=== PATIENT | male | born 1990 | race Caucasian/White ===

== ENCOUNTER 2020-02-01 05:15 | Inpatient (IN) | payer OTHER, SELFPAY ==
[~2020-02-01] VITALS: Ht 167.6 cm; Wt 119.7 kg
[2020-02-01 05:28] VITALS: BP 147/84
--- NOTE | 2020-02-01 05:37 | NUR ---
PT TAKEN TO BED 10
--- NOTE | 2020-02-01 05:42 | NUR ---
Dr. Friedman examining patient.
--- NOTE | 2020-02-01 05:45 | NUR ---
29M PRESENTS TO ED WITH C/O SOB X 1 WEEK. PT ALSO PRESENTS WITH DRY PRODUCTIVE COUGH, HEADACHE, MYALGIA, +N/V/D, +APPETITE CHANGES, FEVER. PT STATES THAT THEY WORK FOR " [employer]" WH[employer] IS [employer] IN [place]. STATES THAT THEY HAVE BEEN EXPOSED TO TWO COVID + COLLEAGUES. STATES THAT EVERYTHING STARTED ABOUT 1 WEEK. ERMD MADE AWARE OF THE SYMPTOMS. PT 02SAT 92% UPON ADMISSION AND PLACED ON 3L N/C WITH 02SAT INCREASING TO 97%. UPON ASSESSMENT, PT A/O X 4, GCS 15. PT APPEARS LETHARGIC. PERRLA. WHEEZES ON BILATERAL LOWER LOBES BOTH INSPIRATORY AND EXPIRATORY. RR TACHYPNEIC AT 37. ABDOMEN SOFT AND NONTENDER. BOWEL SOUNDS NORMOACTIVE. C/O OF LOWER BACK PAIN. PT IS AMBULATORY. SKIN INTACT. PT PLACED FOR COMFORT WITH HOB ELEVATED. SAFETY PRECAUTIONS IN PLACE WITH RAILS UP X2, BED LOWEST AND LOCKED. PT PLACED ON CARDIAC MONITORING, PULSE OXIMETRY AND BP MONITORING. PMHX: DENIES RX: DENIES NKA PLACED IN ISO ROOM 10 FOR POSITIVE COVID SCREENING. PT WEARING MASK.
--- NOTE | 2020-02-01 06:00 | NUR ---
COVID SWAB, FLU, RSV SWAB COLLECTED AND SENT TO LAB.
--- NOTE | 2020-02-01 06:00 | NUR ---
LABS DRAWN AND BLOOD CULTURES DRAWN AND SENT TO LAB.
--- NOTE | 2020-02-01 06:02 | NUR ---
X-Ray at bedside.
[2020-02-01] MEDS ORDERED: ONDANSETRON 4 MG/2 ML VIAL IVP ONE (06:05)
[2020-02-01] MEDS ORDERED: KETOROLAC 30 MG/ML VIAL IVP ONE (06:05)
[2020-02-01 06:10] LABS: APPEARANCE,URINE CLEAR (CLEAR); BILIRUBIN,URINE NEGATIVE (NEGATIVE); BLOOD, URINE TRACE-I (NEGATIVE); COLOR,URINE YELLOW (YELLOW); LEUKOCYTE ESTERASE ,URINE NEGATIVE (NEGATIVE); NITRITE, URINE NEGATIVE (NEGATIVE); UGLUCOSE NEGATIVE (NEGATIVE)
--- NOTE | 2020-02-01 06:15 | NUR ---
PT MEDICATED WITH TORADOL AND ZOFRAN IVP. TOLERATED WELL. NADR
--- NOTE | 2020-02-01 06:16 | NUR ---
NO PRESCRIPTION MEDICATION FOR MED RECON, PER PT STATEMENT
[2020-02-01] MEDS ORDERED: AZITHROMYCIN 500 MG in DEXTROSE 5% 250 ML IV ONE (06:20)
[2020-02-01 06:23] LABS: BASOPHILS # (AUTO) 0.1 K/uL (0.00-0.22); HEMATOCRIT 45.2 % (36-52); HEMOGLOBIN 15.4 g/dL (12.0-18.0); LYMPHOCYTES # (AUTO) 1.1 K/uL (2.0-11.5); LYMPHOCYTES % (AUTO) 17.7 % (20.5-51.1); MEAN CORPUSCULAR HEMOGLOBIN 31 pg (27-31); MEAN CORPUSCULAR HGB CONC 34 g/dL (33-37); MEAN CORPUSCULAR VOLUME 90.7 fL (80-94); MONOCYTES # (AUTO) 0.4 K/uL (0.8-1.0); MONOCYTES % (AUTO) 7.2 % (1.7-9.3); NEUTROPHILS # (AUTO) 4.4 K/uL (1.8-7.7); NEUTROPHILS % (AUTO) 73.1 % (42.2-75.2); PLATELET COUNT (AUTO) 146 K/uL (140-450); RED BLOOD CELL COUNT(AUTO) 4.98 MIL/uL (4.20-6.10)
[2020-02-01] MEDS ORDERED: AZITHROMYCIN 500 MG INJ VIAL IV ONE (06:24)
--- NOTE | 2020-02-01 06:39 | NUR ---
PT STARTED ON ZITHROMAX 500MG VIA IVPB. TOLERATED WELL. NADR
[2020-02-01 06:43] LABS: RBC,URINE 0-5 /HPF (0-5); RSV NEGATIVE (NEGATIVE); WBC,URINE 0-5 /HPF (0-5)
[2020-02-01 06:50] LABS: PROTHROMBIN TIME 10.7 secs (10.8-13.4)
[2020-02-01 06:52] LABS: ALBUMIN 3.1 g/dL (3.4-5.0); ANION GAP 15.3 (8-16); CARBON DIOXIDE 23.6 mmol/L (21-32); POTASSIUM 3.9 mmol/L (3.5-5.1); TOTAL BILIRUBIN 0.3 mg/dL (0.0-1.0)
--- NOTE | 2020-02-01 07:05 | NUR ---
Patient will be admitted to care of DR LOPEZ. Admited to TELE. Will go to room 116. Belongings list completed. Report to LISA HARP .
--- NOTE | 2020-02-01 07:05 | NUR ---
RECEIVED REPORT FROM ER NURSE, PT IS STABLE, AAOX4, PT HAS R AC 18G, SKIN INTACT, PT ON 3L NASAL CANNULA OXYGEN, INTRODUCE PT TO ROOM, OBTAIN MRSA SWAB, CALL LIGHT WITHIN REACH, BED IN LOW POSITION, ALL NEEDS MET AT THIS TIME, WILL CONTINUE TO MONITOR.
[2020-02-01 08:00] VITALS: BP 100/49
[2020-02-01] MEDS ORDERED: DOCUSATE SODIUM 100 MG GELCAP PO PRN (08:20)
[2020-02-01] MEDS ORDERED: LORazepam 2 MG/ML VIAL IM/IVP PRN (08:20)
[2020-02-01] MEDS ORDERED: MORPHINE SULFATE 2 MG/ML SYR IVP PRN (08:20)
[2020-02-01] MEDS ORDERED: ACETAMINOPHEN 325 MG TAB PO PRN (08:20)
[2020-02-01] MEDS ORDERED: ONDANSETRON 4 MG/2 ML VIAL IM/IVP PRN (08:20)
[2020-02-01] MEDS ORDERED: HYDROcodone/APAP 5/325 MG 1 TAB TAB PO PRN (08:20)
[2020-02-01] MEDS ORDERED: ZOLPIDEM 5 MG TAB PO PRN (08:20)
[2020-02-01] MEDS ORDERED: ALBUTEROL HFA MDI 90 MCG/ACTUATION 8 GM INH PRN (08:25)
[2020-02-01 08:28] LABS: C-REACTIVE PROTEIN QUANT 9.7 mg/dL (0.0-0.9)
[2020-02-01 08:34] LABS: LACTATE DEHYDROGENASE 504 U/L (85-227)
--- NOTE | 2020-02-01 08:59 | NUR ---
PATIENT HAS BEEN SCREENED AND CATEGORIZED MODERATE NUTRITION RISK. PATIENT WILL BE SEEN WITHIN 3-5 DAYS OF ADMISSION. 02/03/20 02/05/[address]
[2020-02-01] MEDS: ENOXAPARIN 60 MG/0.6 ML SYR SUBQ SCH ×2 (09:42→21:04)
[2020-02-01] MEDS: ASCORBIC ACID 500 MG TAB PO SCH (09:43)
[2020-02-01] MEDS: ZINC SULF 220 MG CAP PO SCH (09:43)
[2020-02-01] MEDS: NACL 0.9% 1,000 ML IV SCH (09:47)
[2020-02-01 09:52] LABS: CHOL/HDL RATIO 3.3 (1-4.5)
[2020-02-01 10:00] LABS: MAGNESIUM 1.9 mg/dL (1.8-2.4); PHOSPHORUS 2.8 mg/dL (2.5-4.9); THYROID STIMULATING HORMONE 2.48 uIU/mL (0.34-3.74)
--- NOTE | 2020-02-01 10:00 | NUR ---
ADMINISTERED SCHEDULED MEDICATION, MEDICATION EDUCATION GIVEN, PT VERBALIZED UNDERSTANDING, PT IS STABLE, CALL LIGHT WITHIN REACH.
--- NOTE | 2020-02-01 11:06 | NUR ---
ROAD SUPERVISOR NOTE: Patient's Orientation Person Situation Place Time Information Provided By CELIA JOSE Comments SW WAS UNABLE TO MEET PATIENT AT BEDSIDE DUE TO MEDICAL CONDITION. Barrel Marker, Realtionship and Phone Number CELIA PRETTY [phone] Healthcare Power of Warehouse Production Worker No Does Patient Have a POLST No Identifying Problems No Social Work Triggers Is A Social Work Consult Needed No Mandate Report Filed No Explanation Of Identifying Problems PATIENT IS A 29-YEAR-OLD MALE ADMITTED FOR PNEUMONIA AND COVID R/O. Admitted From Home Pre-Admission Level Of Functioning Status Independent/Ambulatory Prior Resources/Services Used In Last 12 Months No Prior Resources Used Prior DME No Prior DME Used Living Situation Lives With Family House Patient Had Caregiver No Home Support No Caregiver Issues Financial Issues No Known Financial Issue Referral To The Financial Counselor Needed No Factors/Needs No D/C Needs Identified Pt/Rep Participated In Discharge Plan Yes Patient/Family Agress With Discharge Plan Yes Discharge Plan Comments TENTATIVE DISCHARGE PLAN IS FOR PATIENT TO RETURN HOME. DC Plan Status Initiated
[2020-02-01 12:00] VITALS: BP 118/60
--- NOTE | 2020-02-01 13:00 | NUR ---
PT RESTING IN BED, NO SIGNS OF DISTRESS NOTED, CALL LIGHT WITHIN REACH.
--- NOTE | 2020-02-01 14:37 | NUR ---
DC PLANNIN YRS OLD MALE PATIENT WAS ADMITTED FROM HOME WITH A DX OF PNEUMONIA R/O COVID . PATIENT HAS NO MEDICAL HX. CXR SHOWED LOW LUNG VOLUMES BILATERAL PATCHY HAZINESS SUSPICIOUS FOR INFILTRATE. INFLUENZA A&B NEGATIVE. COVID TEST AND BLOOD CULTURE PENDING. STARTED ON IVF, IV ABX ROCEPHIN , LOVENOX SUBQ .CONSULTED WITH DR ELLY WINTERS DC PLAN TO GO HOME WHEN STABLE CM TO FOLLOW. Addendum: 02/04/20 at 1525 by Michela Vitale CM LATE ENTRY: RECEIVED AN ORDER FOR HOME O2. CONTACTED [facility] AT [phone], ABLE TO SPEAK TO [facility]. SHE STATED THEIR AUTH DEPARTMENT IS CLOSED TODAY AND TO FOLLOW UP ON WEDNESDAY. CONTACTED [facility] (MAIN OFFICE) AT [phone], ABLE TO SPEAK TO QUENTIN. SHE CONFIRMED THAT THEY ARE CONTRACTED WITH [employer] AND TO GO AHEAD AND FAX REFERRAL TO [phone]. ORDER SENT TO THE PROVIDED FAX NUMBER. CONTACTED [facility] (LOCAL) [phone], NO ANSWER. LEFT MESSAGE. WILL FOLLOW UP. Addendum: 02/05/20 at 1105 by Thais Monge CM FOLLOWED UP WITH JENI AT [facility] [phone]. SHE STATED THAT SHE IS GOING TO HAVE HER BEAUTY CULTURE TEACHER LOOK INTO THIS PATIENTS ORDER BECAUSE SHE IS READING A NOTE THAT STATES THE PATIENTS INSURANCE DOES NOT COVER THE COST FOR THE HOME 02. HER BEAUTY CULTURE TEACHER YOEL WILL BE REACHING OUT TO ME. Addendum: 02/05/20 at 1314 by Michela Vitale RECEIVED A MESSAGE FROM REBECCA OF [facility] REQUESTING FOR LITER FLOW. CONTACTED [facility] AT [phone], ABLE TO SPEAK TO YOEL. HE STATED REBECCA IS ON THE PHONE HOWEVER HE CAN HELP. INFORMED HIM THAT PORTABLE OXYGEN WAS DELIVERED AT THE BEDSIDE LAST NIGHT. HE STATED HE IS NOT AWARE OF IT. INFORMED HIM WELL THAT I SPOKE TO QUENTIN YESTERDAY. CONTACTED PATIENT'S NURSE JOSE ENRIQUE, IF WHEN WAS THE O2 DELIVERED. SHE STATED LAST NIGHT BUT DID NOT GET ANY ENDORSEMENT WHICH COMPANY DELIVERED IT. CONTACTED THE PATIENT'S PARTNER KURT JOSE AT [phone], SHE CONFIRMED THAT THE PATIENT IS HOME ALREADY AND IS TAKING A SHOWER AT THIS TIME. I ASKED HER A FAVOR TO CHECK THE BALL ENDER THE O2 TANK IF WHAT COMPANY IS ON THERE. SHE STATED [employer]. CONTACTED [employer], ABLE TO SPEAK TO YOEL. INFORMED HIM THAT THE O2 IS FROM [employer]. HE STATED PROBABLY IT WAS DELIVERED AFTER HOURS. Addendum: 02/06/20 at 1113 by Michela Vitale RECEIVED A CALL FROM JOSE ENRIQUE AT DR. LOPEZ'S OFFICE, REGARDING PATIENT'S HOME O2 THAT IT WAS ALL EMPTY AND THEY NEEDED REPLACEMENT. CONTACTED [employer] AT [phone], NO ANSWER. LEFT MESSAGE. CONTACTED PATIENT'S PARTNER KUTR JOSE AT [phone], SHE STATED HE IS ON THE PHONE WITH [employer] AT THIS TIME.
--- NOTE | 2020-02-01 15:36 | NUR ---
PT RESTING IN BED, NO SIGNS OF DISTRESS NOTED, PT STATES HE IS OKAY, ALL NEEDS MET AT THIS TIME, WILL CONTINUE TO MONITOR, CALL LIGHT WITHIN REACH.
[2020-02-01 16:00] VITALS: BP 106/55
--- NOTE | 2020-02-01 17:45 | NUR ---
PT RESTING IN BED WATCHING TV, NO SIGNS OF DISTRESS NOTED, CALL LIGHT WITHIN REACH.
--- NOTE | 2020-02-01 19:20 | NUR ---
ENDORSE PT TO NIGHT NURSE FOR CONTINUITY OF CARE, PT IS STABLE
--- NOTE | 2020-02-01 19:25 | NUR ---
RECEIVED ENDORSEMENT FROM AM SHIFT RN. PATIENT IS LYING IN BED. NO SOB. ON 3 LITERS NASAL CANNULA. DENIES PAIN. NOTED RAC 18 G WITH IVF INFUSING. TELE MONITOR ATTACHED. ASSESSMENT DONE. DROPLET ISOLATION OBSERVED. LOW BED IN PLACE. PLAN OF CARE WAS DISCUSSED. CALL LIGHT WITHIN REACH. WILL CONTINUE TO MONITOR.
[2020-02-01 20:00] VITALS: BP 117/67
--- NOTE | 2020-02-01 21:04 | NUR ---
DUE MEDS GIVEN ORDERED. TOLERATED WELL. MED EDUCATION PROVIDED.
[2020-02-01 22:45] LABS: BARBITURATE, URINE NEGATIVE ng/ml (NEG <=200); BENZODIAZEPINE, URINE NEGATIVE ng/mL (NEG <=200); CANNABINOID, URINE NEGATIVE ng/mL (NEG <=50); COCAINE, URINE NEGATIVE ng/mL (NEG <=300); OPIATE, URINE NEGATIVE ng/mL (NEG <=2000); PHENCYCLIDINE SCREEN,URINE NEGATIVE ng/mL (NEG <=25)
[2020-02-02] VITALS: BP 108/57
--- NOTE | 2020-02-02 00:03 | NUR ---
PATIENT IS FEBRILE 100.6. TYLENOL PO GIVEN ORDERED
[2020-02-02] MEDS ORDERED: TEMAZEPAM 15 MG CAP PO ONE (00:10)
[2020-02-02] MEDS: guaiFENesin DM 200/20 MG-10 ML 10 ML UDC PO PRN ×3 (00:36→22:54)
--- NOTE | 2020-02-02 00:36 | NUR ---
PATIENT NOTED WITH NON PRODUCTIVE COUGH. ROBITUSSIN PO GIVEN REQUESTED BY PATIENT AND ORDERED.
--- NOTE | 2020-02-02 03:00 | NUR ---
PATIENT IS ASLEEP. EASILY AROUSABLE TO VERBAL. NO SOB. CALL LIGHT WITHIN REACH. WILL CONTINUE TO MONITOR.
[2020-02-02 04:00] VITALS: BP 113/70
[2020-02-02] MEDS: NACL 0.9% 1,000 ML IV SCH (05:12)
[2020-02-02 06:46] LABS: BASOPHILS % (AUTO) 0.3 % (0.0-2.0); HEMATOCRIT 42.5 % (36-52); HEMOGLOBIN 14.3 g/dL (12.0-18.0); LYMPHOCYTES # (AUTO) 1.7 K/uL (2.0-11.5); LYMPHOCYTES % (AUTO) 27.4 % (20.5-51.1); MEAN CORPUSCULAR HEMOGLOBIN 31 pg (27-31); MEAN CORPUSCULAR HGB CONC 34 g/dL (33-37); MEAN CORPUSCULAR VOLUME 91.5 fL (80-94); MONOCYTES # (AUTO) 0.4 K/uL (0.8-1.0); MONOCYTES % (AUTO) 5.9 % (1.7-9.3); NEUTROPHILS # (AUTO) 4.2 K/uL (1.8-7.7); NEUTROPHILS % (AUTO) 66.4 % (42.2-75.2); PLATELET COUNT (AUTO) 178 K/uL (140-450); RED BLOOD CELL COUNT(AUTO) 4.65 MIL/uL (4.20-6.10); RED CELL DISTRIBUTION WIDTH 13.1 % (11.6-13.7); WHITE BLOOD COUNT (AUTO) 6.3 K/uL (4.8-10.8)
[2020-02-02 06:59] LABS: ALBUMIN 2.6 g/dL (3.4-5.0); ASPARTATE AMINOTRANSFERASE 108 U/L (15-37); CARBON DIOXIDE 28.2 mmol/L (21-32); CHLORIDE 103 mmol/L (98-107); CREATININE 1.1 mg/dL (0.6-1.3); GFR ARICAN-AMERICAN 103 mL/min (>90); GLUCOSE 106 mg/dL (74-106); LACTATE DEHYDROGENASE 506 U/L (85-227); POTASSIUM 4.2 mmol/L (3.5-5.1); SODIUM SERUM 139 mmol/L (136-145); TOTAL BILIRUBIN 0.3 mg/dL (0.0-1.0); UREA NITROGEN, BLOOD 7 mg/dL (7-18)
--- NOTE | 2020-02-02 07:02 | NUR ---
PATIENT IS NOT IN ANY ACUTE DISTRESS. ENDORSED TO AM SHIFT RN FOR CONTINUITY OF CARE.
--- NOTE | 2020-02-02 07:20 | NUR ---
SHIFT REPORT RECEIVED FROM UNIFORM CAP OPERATOR NURSE. PT IS AWAKE AND RESPONSIVE AND SITTING IN BED. PT'S VITAL SIGNS NORMAL. PT IS ON O2 3L NC AT 94%. NO COMPLAINS OF PAIN OR DISTRESS REPORTED. SAFETY MEASURES IN PLACE. IV INTACT. WILL CONTINUE TO MONITOR. CALL LIGHT IN REACH.
[2020-02-02 08:00] VITALS: BP 115/68
[2020-02-02] MEDS ORDERED: AZITHROMYCIN 250 MG TAB PO SCH (09:00)
[2020-02-02] MEDS: ZINC SULF 220 MG CAP PO SCH (09:25)
[2020-02-02] MEDS: DEXAMETHASONE 4 MG TAB PO SCH (09:27)
[2020-02-02] MEDS: ASCORBIC ACID 500 MG TAB PO SCH (09:27)
--- NOTE | 2020-02-02 09:30 | NUR ---
PT IS SITTING IN BED. PT HAD BREAKFAST. PT AMBULATED TO RESTROOM. NO DISTRESS OR S.O.B REPORTED. WILL CONTINUE TO MONITOR. CALL LIGHT IN REACH.
[2020-02-02] MEDS: ENOXAPARIN 60 MG/0.6 ML SYR SUBQ SCH ×2 (09:47→22:37)
[2020-02-02 12:00] VITALS: BP 100/42
--- NOTE | 2020-02-02 12:30 | NUR ---
PT IS SITTING IN CHAIR. PT HAD BREAKFAST. PT AMBULATED TO RESTROOM. NO DISTRESS OR S.O.B REPORTED. VITAL SIGNS NORMAL. INCENTIVE SPIROMETRY GIVEN WITH EDUCATION. WILL CONTINUE TO MONITOR. CALL LIGHT IN REACH.
--- NOTE | 2020-02-02 14:51 | NUR ---
PT IS RESTING IN BED AT TIS TIME. PT IS ALERT AWAKE AND RESPONSIVE. PT IS STABLE AT HIS TIME. NO DISTRESS NOTED. WILL CONTINUE TO MONITOR. CALL LIGHT IN REACH.
[2020-02-02 16:00] VITALS: BP 119/68
--- NOTE | 2020-02-02 16:00 | NUR ---
PT IS SITTING IN BED WATCHING TELEVISION. PT WAS GIVEN COUGH MEDICATION FOR C/O OF COUGH. NO PAIN REPORTED. PT IS AMBULATORY. SAFETY MEASURES IN PLACE. CALL LIGHT IN REACH.
--- NOTE | 2020-02-02 19:20 | NUR ---
SHIFT REPORT GIVEN TO SCALE TECHNICIAN NURSE. PT IS IN STABLE CONDITION.
--- NOTE | 2020-02-02 19:21 | NUR ---
RECEIVED REPORT FROM DAY SHIFT NURSE, FOR CONTINUITY OF CARE. PT IS A&OX4. COVID +. RESPIRATIONS ARE EVEN AND UNLABORED, BREATHING TO 3L NC. SKIN COLOR APPROPRIATE FOR ETHNICITY. RAC 18G IV IS PATENT AND INTACT, AND RUNNING PER ORDERS. NO ACUTE DISTRESS NOTED. DROPLET PRECAUTIONS IN PLACE. SAFETY MEASURES IN PLACE; CALL LIGHT WITHIN REACH, BED IN LOW POSITION. WILL CONTINUE TO MONITOR.
[2020-02-02 20:00] VITALS: BP 134/59
[2020-02-02] MEDS: TEMAZEPAM 15 MG CAP PO SCH (22:36)
--- NOTE | 2020-02-02 22:57 | NUR ---
ORDERED MEDICATION GIVEN, WITH MEDICATION EDUCATION PROVIDED. PT REQUESTED MEDICATION TO HELP WITH HIS COUGH; PRN PO COUGH MEDICATION GIVEN. NO DISTRESS NOTED. SPO2: 93% ON 3L NC. TELE MONITOR ATTACHED. SAFETY MEASURES IN PLACE. WILL CONTINUE TO MONITOR.
[2020-02-03] VITALS: BP 126/56
--- NOTE | 2020-02-03 03:37 | NUR ---
PT FOUND SITTING UP AT SIDE OF BED HOLDING CHEST, AND COUGHING; COMPLAINS OF CONSTANT COUGHING AND SOB. NC 02 INCREASED, AND PT'S SYMPTOMS RESOLVE. WILL NOTIFY RT, AND CONTINUE TO MONITOR PT.
--- NOTE | 2020-02-03 03:46 | NUR ---
PT STATES THAT HE IS BREATHING EASIER; 02 SET BACK TO 3 LPM VIA NC. WILL CONTINUE TO MONITOR.
[2020-02-03 04:00] VITALS: BP 128/53
[2020-02-03] MEDS: NACL 0.9% 1,000 ML IV SCH (06:19)
[2020-02-03] MEDS: guaiFENesin DM 200/20 MG-10 ML 10 ML UDC PO PRN ×3 (06:19→18:56)
--- NOTE | 2020-02-03 06:20 | NUR ---
ADMINISTERED PRN PO COUGH MEDICATION, AT PT'S REQUEST. IVF BAG HUNG, AND RUNNING PER ORDERS. NO ACUTE DISTRESS NOTED.
--- NOTE | 2020-02-03 07:29 | NUR ---
ENDORSED TO DAYSHIFT NURSE, FOR CONTINUITY OF CARE. PT IS IN STABLE CONDITION.
--- NOTE | 2020-02-03 07:30 | NUR ---
RECEIVED PATIENT FROM NIGHT NURSE. PATIENT IS AWAKE AND ALERT ORIENTED X4. PATIENT IS UP AND AMBULATED WITH STEADY GAIT TO CHAIR. PATIENT DENIES OF SOB OR PAIN AT THIS TIME. RAC 18 NOTED. PLAN OF CARE DISCUSSED WITH PATIENT. PATIENT VERBALIZED UNDERSTANDING. CALL LIGHT WITHIN REACH. WILL CONTINUE WITH CARE.
[2020-02-03 08:00] VITALS: BP 108/62
[2020-02-03] MEDS: DEXAMETHASONE 4 MG TAB PO SCH (08:21)
[2020-02-03] MEDS: ASCORBIC ACID 500 MG TAB PO SCH (08:21)
[2020-02-03] MEDS: ZINC SULF 220 MG CAP PO SCH (08:21)
[2020-02-03 08:24] LABS: BASOPHILS % (AUTO) 0.5 % (0.0-2.0); HEMATOCRIT 42.2 % (36-52); HEMOGLOBIN 14.2 g/dL (12.0-18.0); LYMPHOCYTES # (AUTO) 1.3 K/uL (2.0-11.5); LYMPHOCYTES % (AUTO) 13.5 % (20.5-51.1); MEAN CORPUSCULAR HEMOGLOBIN 31 pg (27-31); MEAN CORPUSCULAR HGB CONC 34 g/dL (33-37); MEAN CORPUSCULAR VOLUME 91.4 fL (80-94); MONOCYTES # (AUTO) 0.7 K/uL (0.8-1.0); MONOCYTES % (AUTO) 7.7 % (1.7-9.3); NEUTROPHILS # (AUTO) 7.6 K/uL (1.8-7.7); NEUTROPHILS % (AUTO) 78.3 % (42.2-75.2); PLATELET COUNT (AUTO) 237 K/uL (140-450); RED BLOOD CELL COUNT(AUTO) 4.62 MIL/uL (4.20-6.10); RED CELL DISTRIBUTION WIDTH 13.3 % (11.6-13.7); WHITE BLOOD COUNT (AUTO) 9.7 K/uL (4.8-10.8)
[2020-02-03 08:33] LABS: ALBUMIN 2.6 g/dL (3.4-5.0); ANION GAP 13.4 (8-16); CARBON DIOXIDE 26.2 mmol/L (21-32); CREATININE 1.1 mg/dL (0.6-1.3); POTASSIUM 4.6 mmol/L (3.5-5.1); TOTAL BILIRUBIN 0.2 mg/dL (0.0-1.0)
[2020-02-03] MEDS: ENOXAPARIN 60 MG/0.6 ML SYR SUBQ SCH ×2 (08:47→23:06)
--- NOTE | 2020-02-03 08:47 | NUR ---
MORNING ROUTINE MEDICATIONS GIVEN ORDERED. PATIENT TOLERATED WELL. RIGHT AC 18 PATENT, IVF RUNNING NS 40ML/HR. PATIENT DENIES OF SOB OR DISTRESS. 98.0 85 18 108/62 99% ON 3L NC. PATIENT TEACHING ON I/S AND PROPHYLACTIC THERAPY GIVEN. PATIENT VERBALIZED UNDERSTANDING. CALL LIGHT WITHIN REACH. WILL CONTINUE TO MONITOR.
[2020-02-03 09:46] LABS: CKMB RELATIVE INDEX 0.2 (0.0-2.5); CREATINE KINASE MB 1.8 ng/mL (0-3.6)
[2020-02-03 12:00] VITALS: BP 108/60
--- NOTE | 2020-02-03 12:45 | NUR ---
98.5 87 16 108/60 92% ON RA. PATIENT COMPLAINS OF COUGHS AND WAS GIVEN ROBITUSSIN PRN ORDERED. DR FISHER IS ATTEMPTING TO WEAN PATIENT OF OFF OXYGEN AND MAINTAIN A GOOD O2SAT ABOVE 92% FOR DISCHARGE PLANNING. WILL CONTINUE TO MONITOR.
--- NOTE | 2020-02-03 13:46 | NUR ---
PATIENT HAS SOB UPON EXERTION ACCOMPANYING WITH COUGHS. ALSO WHEN USING I/S, PATIENT IS UNABLE TO TAKE BREATHES WITHOUT COUGHINGS. SPOKE TO DR FISHER, PATIENT IS PUT BACK ON 3L NC, D/C PLANNING POSSIBLE FOR TOMORROW WHEN O2SAT IS MORE STABLE. PATIENT VERBALIZED UNDERSTANDING.
[2020-02-03 16:00] VITALS: BP 109/54
--- NOTE | 2020-02-03 17:25 | NUR ---
PATIENT IS SITTING COMFORTABLY ON CHAIR BY BEDSIDE. RESP EVEN AND UNLABORED ON 3L NC. DENIES OF PAIN OR DISCOMFORT AT THIS TIME. CALL LIGHT WITHIN REACH. WILL CONTINUE TO MONITOR.
--- NOTE | 2020-02-03 19:01 | NUR ---
PATIENT C/O COUGHS AND ROBITUSSIN PRN GIVEN REQUESTED. ENCOURAGED FLUIDS AND CALL STAFF FOR ASSIST NEEDED. RESP EVEN AND UNLABORED ON 3LNC. WILL CONTINUE TO MONITOR.
--- NOTE | 2020-02-03 19:25 | NUR ---
ENDORSED PATIENT TO NIGHT NURSE. PATIENT IN STABLE CONDITION. ROBITUSSIN IS EFFECTIVE.
--- NOTE | 2020-02-03 19:47 | NUR ---
RECEIVED REPORT AT BEDSIDE FROM HECTOR HARP DAYSHIFT NURSE FOR CONTINUITY OF CARE, PT IN STABLE CONDITION.
[2020-02-03 20:00] VITALS: BP 119/64
--- NOTE | 2020-02-03 20:15 | NUR ---
PT SITTING UP IN BED AOX4 WITH NO C/O PAIN OR DISTRESS NOTED. V/S FOLLOWS; T 98.5 P 78 R 20 B/P 119/64 02 IS 95% ON 3 LITERS VIA N/C. ALL DROPLET PRECAUTIONS IN PLACE.
[2020-02-03] MEDS: TEMAZEPAM 15 MG CAP PO SCH (21:00)
--- NOTE | 2020-02-03 21:45 | NUR ---
PT SITTING UP IN CHAIR NO S/S OF PAIN OR DISTRESS NOTED. PT GIVEN ORDERED RESTORIL AND LOVENOX, EDUCATION REGARDING MEDICATIONS PURPOSES AND SIDE EFFECTS PROVIDED AT BEDSIDE, PT ACKNOWLEDGED UNDERSTANDING. ALL DROPLET AND UNIVERSAL FALLS PROTOCOL IN PLACE.
--- NOTE | 2020-02-03 22:45 | NUR ---
PT IN BED SLEEPING, 02 ON AT 3 LITERS VIA N/C 02 IS 93%.
[2020-02-04] VITALS: BP 97/50
--- NOTE | 2020-02-04 00:20 | NUR ---
PT ASLEEP IN BED NO S/S OF PAIN OR DISTRESS NOTED. V/S FOLLOWS: T 98.1 P 74 R 18 B/P 97/50 02 93% ON 2 LITERS VIA N/C. ALL DROPLET AND UNIVERSAL FALLS PROTOCOL IN PLACE.
[2020-02-04] MEDS: guaiFENesin DM 200/20 MG-10 ML 10 ML UDC PO PRN ×3 (01:42→22:20)
--- NOTE | 2020-02-04 02:00 | NUR ---
PT IN BED ASLEEP NO S/S OF PAIN OR DISTRESS NOTED. 02 AT 3 LITERS VIA N/C 02 IS 93%. ALL UNIVERSAL FALLS AND DROPLET PRECAUTIONS IN PLACE.
[2020-02-04 04:00] VITALS: BP 113/57
--- NOTE | 2020-02-04 04:00 | NUR ---
PT IN BED NO S/S OF PAIN OR DISTRESS NOTED V/S FOLLOWS: T 98.5 P 86 R 20 B/P 113/57 02 91% WITH 3 LITERS VIA N/C.
[2020-02-04] MEDS: NACL 0.9% 1,000 ML IV SCH (06:26)
[2020-02-04 06:43] LABS: BASOPHILS # (AUTO) 0.1 K/uL (0.00-0.22); BASOPHILS % (AUTO) 0.4 % (0.0-2.0); HEMATOCRIT 40.5 % (36-52); HEMOGLOBIN 13.6 g/dL (12.0-18.0); LYMPHOCYTES # (AUTO) 1.2 K/uL (2.0-11.5); MEAN CORPUSCULAR HEMOGLOBIN 31 pg (27-31); MEAN CORPUSCULAR HGB CONC 34 g/dL (33-37); MEAN CORPUSCULAR VOLUME 90.7 fL (80-94); MONOCYTES # (AUTO) 1.1 K/uL (0.8-1.0); MONOCYTES % (AUTO) 8.3 % (1.7-9.3); NEUTROPHILS # (AUTO) 10.4 K/uL (1.8-7.7); PLATELET COUNT (AUTO) 302 K/uL (140-450); RED BLOOD CELL COUNT(AUTO) 4.46 MIL/uL (4.20-6.10); RED CELL DISTRIBUTION WIDTH 13.4 % (11.6-13.7); WHITE BLOOD COUNT (AUTO) 12.7 K/uL (4.8-10.8)
[2020-02-04 07:11] LABS: ALBUMIN 2.5 g/dL (3.4-5.0); ANION GAP 14.8 (8-16); CARBON DIOXIDE 24.2 mmol/L (21-32); TOTAL BILIRUBIN 0.3 mg/dL (0.0-1.0)
--- NOTE | 2020-02-04 07:21 | NUR ---
SHIFT REPORT RECEIVED FROM SUBSURFACE AUGMENTEE OPERATOR NURSE. PT IS RESTING IN BED AT THIS TIME. NO COMPLAINS OF PAIN OR DISTRESS REPORTED. WILL CONTINUE TO MONITOR. CALL LIGHT IN REACH.
[2020-02-04 07:45] LABS: CKMB RELATIVE INDEX 0.3 (0.0-2.5); CREATINE KINASE MB 1.4 ng/mL (0-3.6)
[2020-02-04 08:00] VITALS: BP 102/52
[2020-02-04 08:01] LABS: LYMPHOCYTES % (AUTO) 9.7 % (20.5-51.1); NEUTROPHILS % (AUTO) 81.6 % (42.2-75.2)
--- NOTE | 2020-02-04 09:30 | NUR ---
PT IS SITTING BED AT THIS TIME RESPONSIVE. PT TOOK MORNING MEDS. PT ON 3L NC. O2 @ 99%. NO COMPLAINS OF PAIN. PT IS AMBULATORY. SAFETY MEASURES IN PLACE. WILL CONTINUE TO MONITOR. CALL LIGHT IN REACH.
[2020-02-04] MEDS: ZINC SULF 220 MG CAP PO SCH (09:36)
[2020-02-04] MEDS: DEXAMETHASONE 4 MG TAB PO SCH (09:37)
[2020-02-04] MEDS: ENOXAPARIN 60 MG/0.6 ML SYR SUBQ SCH ×2 (09:37→20:51)
[2020-02-04] MEDS: ASCORBIC ACID 500 MG TAB PO SCH (09:37)
--- NOTE | 2020-02-04 11:06 | NUR ---
PT IS LYING IN BED IN PRONE POSITION.E. PT ON 3L NC. O2 @ 99%. NO COMPLAINS OF PAIN. PT IS AMBULATORY. SAFETY MEASURES IN PLACE. WILL CONTINUE TO MONITOR. CALL LIGHT IN REACH.
[2020-02-04 12:00] VITALS: BP 117/67
--- NOTE | 2020-02-04 12:30 | NUR ---
PT IS HAVING LUNCH AT THIS TIME. PT IS ON 3L NC O2. SATS AT 93%. NO DISTRESS NOTED. WILL CONTINUE TO MONITOR. CALL LIGHT IN REACH.
--- NOTE | 2020-02-04 15:03 | NUR ---
OXYGEN ASSESSMENT DONE ON PATIENT. PT ON O2 3L NC SATS AT 94%. PT WITHOUT EXERTION AND WITHOUT OXYGEN O2 SATS AT 91%. PT WITH EXERTION AND WITHOUT OXYGEN O2 SATS AT 89%. PT SAID THAT WITH EXERTION AND WITHOUT OXYGEN PT IS FEELING HEAVY IN CHEST.
[2020-02-04 16:00] VITALS: BP 110/45
--- NOTE | 2020-02-04 19:24 | NUR ---
SHIFT REPORT GIVEN TO INDUSTRIAL RELATIONS COMMISSIONER NURSE. PT IN STABLE CONDITION. CALL LIGHT IN REACH
--- NOTE | 2020-02-04 19:26 | NUR ---
RECEIVED REPORT FROM DAY RN FOR CONTINUITY OF CARE, PT IN STABLE CONDITION.
[2020-02-04 20:00] VITALS: BP 105/52
[2020-02-04] MEDS: TEMAZEPAM 15 MG CAP PO SCH (20:49)
--- NOTE | 2020-02-04 21:07 | NUR ---
PT SITTING IN BED. ADMINISTERED MEDICATIONS PER MD. MEDICATION EDUCATION GIVEN. PT VERBALIZED UNDERSTANDING. AOX4, ON 3L N/C. IV SITE ASYMPTOMATIC ON RIGHT AC 18G, IVF INFUSING NS AT 40ML/HR. SKIN WARM, DRY AND INTACT. NO C/O OF PAIN, NO RESPIRATORY DISTRESS. BED ON LOW POSITION, SIDE RAILS UP X2. CALL LIGHT WITHIN REACH. DROPLET PRECAUTIONS IN PLACE. WILL CONTINUE TO MONITOR.
--- NOTE | 2020-02-04 22:27 | NUR ---
ADMINISTERED MEDICATION PER MD. MEDICATION EDUCATION GIVEN. PT VERBALIZED UNDERSTANDING. PT RESTING IN BED. NO C/O OF PAIN, NO RESPIRATORY DISTRESS. BED ON LOW POSITION, SIDE RAILS UP X2, CALL LIGHT WITHIN REACH. WILL CONTINUE TO MONITOR
[2020-02-05] VITALS: BP 108/62
[2020-02-05 04:00] VITALS: BP 124/64
[2020-02-05] MEDS: guaiFENesin DM 200/20 MG-10 ML 10 ML UDC PO PRN (05:47)
--- NOTE | 2020-02-05 05:52 | NUR ---
ADMINISTERED ROBITUSSIN FOR COUGH PER MD. PT HAS NO C/O PAIN. NO S/S OF RESPIRATORY DISTRESS. CALL LIGHT WITHIN REACH. WILL CONTINUE TO MONITOR
[2020-02-05] MEDS: NACL 0.9% 1,000 ML IV SCH (06:17)
[2020-02-05 06:35] LABS: BASOPHILS % (AUTO) 0.2 % (0.0-2.0); EOSINOPHILS % (AUTO) 0.2 % (0.0-4.0); HEMATOCRIT 41.6 % (36-52); HEMOGLOBIN 14.2 g/dL (12.0-18.0); LYMPHOCYTES # (AUTO) 1.2 K/uL (2.0-11.5); LYMPHOCYTES % (AUTO) 12.1 % (20.5-51.1); MEAN CORPUSCULAR HEMOGLOBIN 31 pg (27-31); MEAN CORPUSCULAR HGB CONC 34 g/dL (33-37); MEAN CORPUSCULAR VOLUME 90.7 fL (80-94); MONOCYTES # (AUTO) 1.1 K/uL (0.8-1.0); MONOCYTES % (AUTO) 10.7 % (1.7-9.3); NEUTROPHILS # (AUTO) 7.8 K/uL (1.8-7.7); NEUTROPHILS % (AUTO) 76.8 % (42.2-75.2); PLATELET COUNT (AUTO) 335 K/uL (140-450); RED BLOOD CELL COUNT(AUTO) 4.59 MIL/uL (4.20-6.10); WHITE BLOOD COUNT (AUTO) 10.1 K/uL (4.8-10.8)
[2020-02-05 07:09] LABS: ALBUMIN 2.5 g/dL (3.4-5.0); CARBON DIOXIDE 23.1 mmol/L (21-32); CREATININE 0.9 mg/dL (0.6-1.3); POTASSIUM 4.1 mmol/L (3.5-5.1); TOTAL BILIRUBIN 0.3 mg/dL (0.0-1.0)
--- NOTE | 2020-02-05 07:10 | NUR ---
RECEIVED BEDSIDE REPORT FROM MAINTENANCE MILLWRIGHT RNANTWON, FOR CONTINUITY OF CARE. PT SITTING IN BED. AOX4, ON 3L N/C. IV SITE ASYMPTOMATIC ON RIGHT AC 18G, IVF INFUSING NS AT 40ML/HR. SKIN WARM, DRY AND INTACT. NO C/O OF PAIN, NO RESPIRATORY DISTRESS. BED ON LOW POSITION, SIDE RAILS UP X2. CALL LIGHT WITHIN REACH. DROPLET PRECAUTIONS IN PLACE. POC DISCUSSED AND PATIENT VERBALIZES UNDERSTANDING. WILL CONTINUE TO MONITOR.
--- NOTE | 2020-02-05 07:37 | NUR ---
ENDORSED PT IN STABLE CONDITION TO DAY RN FOR CONTINUITY OF CARE.
[2020-02-05 08:00] VITALS: BP 121/70
[2020-02-05] MEDS: ZINC SULF 220 MG CAP PO SCH (08:42)
[2020-02-05] MEDS: DEXAMETHASONE 4 MG TAB PO SCH (08:43)
[2020-02-05] MEDS: ASCORBIC ACID 500 MG TAB PO SCH (08:43)
[2020-02-05] MEDS: ENOXAPARIN 60 MG/0.6 ML SYR SUBQ SCH (08:46)
--- NOTE | 2020-02-05 08:55 | NUR ---
MORNING MEDICATIONS GIVEN. NO SIGNS OF DISTRESS NOTED. V/S TAKEN AND IS WNL. WILL CONTINUE TO MONITOR.
[2020-02-05] MEDS ORDERED: DEXA6TAB8 PO (09:45)
[2020-02-05] MEDS ORDERED: APIX2.5 PO ×2 (09:45→13:54)
[2020-02-05 11:13] VITALS: BP 121/70
--- NOTE | 2020-02-05 11:40 | NUR ---
PATIENT DISCHARGE TEACHINGS AND INSTRUCTIONS GIVEN. PATIENT VERBALIZES UNDERSTANDING. NO SIGNS OF DISTRESS NOTED. WILL CONTINUE TO MONITOR.
--- NOTE | 2020-02-05 12:00 | NUR ---
PATIENT DISCHARGED TO HOME WITH SPOUSE. PATIENT DISCHARGE INSTRUCTIONS AND TEACHINGS GIVEN. PATIENT VERBALIZES UNDERSTANDING. NO SIGNS OF DISTRESS NOTED. V/S STABLE. IV SITES AND ARMBANDS REMOVED. HEART MONITOR REMOVED. COVID-19 RESOURCES (NUTRITION, 10 WAYS TO MANAGE RESPIRATORY SYMPTOMS, HOME ISOLATION GIVEN INSTRUCTIONS) WERE GIVEN TO PATIENT, PATIENT VERBALIZES UNDERSTANDING.
[2020-02-05] MEDS ORDERED: DEC4 PO (13:54)
== END 2020-02-05 12:05 | disposition home or self-care (01) | DRG 871 ==
LOC: EEVIPCON 05:15 → MED 05:15 → MTU 06:42
PROVIDERS: ADMIT General Practice; ATTEND General Practice
DX: A41.9 Sepsis, unspecified organism (principal); J12.89 Other viral pneumonia; U07.1 COVID-19; J96.01 Acute respiratory failure with hypoxia; Z68.41 Body mass index [BMI] 40.0-44.9, adult; E44.0 Moderate protein-calorie malnutrition; R74.0 Nonspecific elevation of levels of transaminase and lactic acid dehydrogenase [LDH]; I10 Essential (primary) hypertension; K76.0 Fatty (change of) liver, not elsewhere classified; E66.01 Morbid (severe) obesity due to excess calories
CPT/HCPCS: 36415; 36600; 71045; 80053; 80305; 81001; 82550; 82553; 82728; 82803; 83036; 83605; 83615; 83735; 83880; 84100; 84134; 84443; 84484; 85025; 85379; 85384; 85610; 85651; 85730; 86140; 87040; 87081; 87086; 87420; 87804; 93005; 96365; 96375; 99291; J0456; J0696; J1650; J1885; J2405; J3535; J7030; J7060; Q0092; U0003-CS